=== PATIENT | female | born 1990 ===

== ENCOUNTER 2019-06-10 13:24 | Inpatient (IN) | payer MEDICAID, SELFPAY ==
[~2019-06-10 13:24] MED LIST: Bupivacaine 0.25% HCL 30 ML VIAL ONE
[2019-06-10 13:36] VITALS: BMI 30.4
[2019-06-10] MEDS ORDERED: Lidocaine 1% (PF) 30 ML VIAL ONE (13:47)
[2019-06-10] MEDS ORDERED: NS / Oxytocin 40 units/1000ml 1,000 ML ONE (13:47)
[2019-06-10] MEDS ORDERED: Carboprost 250 MCG/ML AMP IM PRN (13:51)
[2019-06-10] MEDS ORDERED: Ondansetron PF 4 MG/2 ML Vial IVP PRN ×3 (13:51→17:42)
[2019-06-10] MEDS ORDERED: Misoprostol 200 MCG TAB PR PRN (13:51)
[2019-06-10] MEDS ORDERED: Methylergonovine 0.2 MG/ML VIAL IM PRN (13:51)
[2019-06-10] MEDS ORDERED: Acetaminophen 500 MG TAB PO PRN (13:51)
[2019-06-10] MEDS ORDERED: Ibuprofen 800 MG TAB PO PRN (13:51)
[2019-06-10] MEDS ORDERED: NS / Oxytocin 40 units/1000ml 1,000 ML IV PRN (13:51)
[2019-06-10] MEDS ORDERED: Diphenoxylate HCl/Atropine Tablet PO PRN (13:51)
[2019-06-10] MEDS ORDERED: hydrALAZINE 20 MG/ML VIAL SLOW IVP PRN ×2 (13:51→17:42)
[2019-06-10] MEDS ORDERED: Lidocaine 1% (PF) 30 ML VIAL SC PRN (13:51)
[2019-06-10] MEDS ORDERED: Promethazine HCl 25 MG/ML VIAL IM PRN ×2 (13:51→14:40)
[2019-06-10] MEDS ORDERED: Butorphanol Tartrate 1 MG/ML VIAL SLOW IVP PRN (13:51)
[2019-06-10] MEDS ORDERED: Docusate 100 MG CAP PO PRN (13:51)
[2019-06-10] MEDS ORDERED: Fentanyl 4 mcg/Bup 0.1% Cadd 100 ML ONE (14:00)
[2019-06-10 14:08] LABS: Hemoglobin 12.9 g/dL (12.0-16.0); Mean Corpuscular HGB CONC 35.1 g/dL (32.0-36.0); Mean Corpuscular Hemoglobin 30.5 pg (27.0-31.0); Mean Corpuscular Volume 86.9 fL (78.0-98.0); Mean Platelet Volume 7.1 fL (7.4-10.4); Platelet Count 220 thou/uL (130-400); RBC Distribution Width 12.7 % (11.5-14.5); Red Blood Cell (RBC) Count 4.22 mill/uL (4.20-5.40); White Blood Cell (WBC) Count 9.9 thou/uL (4.8-10.8)
--- NOTE | 2019-06-10 14:16 | PDOC.FPROB ---
FMR OB H&P: HPI - History of Present Illness Chief Complaint: contractions Indentification: 29yo @ 38.5 by LMP c/w 9.5wk sono History of Present Illness: 29yo @ 38.5 by LMP c/w 9.5wk sono presents for contractions. Started this AM, increased frequency and intensity. Currently about every 4minutes. Scant vaginal bleeding, no LOF. Good movement. No vision changes, SOB, CP , cough, fever/chills, n/v. Desires epidural. Primary Care Physician: MARRY Jang FMR OB H&P: Current - Care : 3 Para: 1999 Gestational age: 38.5 Due date: 06/19/2019 Dating Criteria: LMP c/w 9.5wk sono - OB Labs Blood type: O RH: positive Antibody Screen: negative HIV: negative RPR: negative HepBsAg: negative Rubella: immune Gonorrhea: negative Chlamydia: negative (initially positive with LORI negative) Pap Smear: NILM A1c: 5.2 GBS: unknown H&H: 12.1 - Anatomy Survey Anatomy survey: grossly normal - Additional Ultrasound Additional: [place] 87.6% on 05/13/19 with posterior placenta. 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 BV treated. Both during this . - Surgical History Sx History: none - Social History Social History: no tob, illicits, etoh - Family History Family History: limb defects FMR OB H&P: Medications - Current Home Medications: Medication Instructions Recorded Confirmed Type Vit No.129/Iron/Folic 1 tab PO DAILY 06/10/19 06/10/19 History [ One Daily Tablet] Allergies/Adverse Reactions: Allergies Allergy/AdvReac Type Severity Reaction Status Date / Time No Known Allergies Allergy Verified 06/10/19 13:27 FMR OB H&P: ROS - Review of Systems General: denies: fever/chills, weight/appetite/sleep changes Eyes: denies: vision changes, scotomas ENT: denies: nasal congestion, rhinorrhea Cardiovascular: denies: chest pain Respiratory: denies: cough, congestion, shortness of breath Gastrointestinal: denies: abdominal pain Genitourinary (Female): reports: vaginal discharge, vaginal bleeding (scant), contractions. denies: hesitancy Musculoskeletal: denies: pain FMR OB H&P: Vital Signs - Maternal Vital signs: Vital Signs - First Documented Temp Pulse Resp BP 97.8 F 71 18 123/70 06/10/19 13:26 06/10/19 13:26 06/10/19 13:26 06/10/19 13:26 - Heart Tones Baseline: 150 Variability: moderate Acceleration: present Deceleration: absent Category: category 1 [place] contractions every: 4-6min FMR OB H&P: Physical Exam - Physical Exam General: NAD, awake, alert and oriented HEENT: MMM Neck: supple Heart: RRR, normal S1/S2, no murmurs/rubs/gallops, no edema General: CTAB, no respiratory distress, good air movement, no rales/rhonchi, no wheezing Abdomen: soft, gravid, non-tender, bowel sound present, no masses Neurological: no focal deficit - Pelvic Exam SVE: Membranes: intact FMR OB H&P: Results - Labs Lab results: Laboratory Results - last 24 hr 06/10/19 13:56 WBC 9.9 RBC 4.22 Hgb 12.9 Hct 36.6 MCV 86.9 MCH 30.5 MCHC 35.1 RDW 12.7 Plt Count 220 MPV 7.1 L FMR OB H&P: A/P - Problem List (1) Term Current Visit: Yes Status: Acute Code(s): Z34.90 - ENCNTR FOR SUPRVSN OF NORMAL , UNSP, UNSP TRIMESTER Disposition: 29yo @ 38.5 by LMP c/w 9.5wk sono presents for contractions #Term SIUP - contractions q4-6min, increased from onset this AM - bulging bag on exam - initial SVE /-1 - Cat 1 strip - desires epidural, anesthesia consulted - Admit to L&D for active labor - monitor on monitors #GBS unknown - sample collected at last OB visit, will obtain results #h/o Chlamydia - Positive early in , LORI negative, no active sxs #CF carrier - FOB CF carrier negative, baby with no increased risk #Glucose intolerance - 1h GCT 163, 3 hr WNL IVF: LR @125cc/hr PCP: MARRY - Dorene/Ramakrishna Diet: NPO Discussion: Date/Time: 06/10/19 1409 This H&P was discussed with Dr. Khan and Dr. Mix who agree with the above documentation and plan. Addendum - Attending - Attending Attestation Date/Time: 06/10/19 1513 I personally evaluated the patient and discussed the management with Dr. Alonzo I agree with the History, Examination, Assessment and Plan documented above with any addition or exceptions noted below. GBS negative. expectant management.
[2019-06-10] MEDS ORDERED: Naloxone HCl 0.4 mg/ml Vial IVP PRN ×2 (14:40)
[2019-06-10] MEDS ORDERED: diphenhydrAMINE 50 MG/ML VIAL IVP PRN (14:40)
[2019-06-10] MEDS ORDERED: Lactated Ringer's 500 ML IV PRN (14:40)
[2019-06-10] MEDS ORDERED: Acetaminophen 325 MG TAB PO PRN (14:40)
[2019-06-10] MEDS ORDERED: EPHEDRINE 25 MG/5 ML SYRINGE SLOW IVP PRN (14:40)
[2019-06-10] MEDS ORDERED: Fentanyl 4 mcg/Bupivacaine 0.1% Cassette 100 ML EPIDURAL SCH (14:45)
[2019-06-10] MEDS ORDERED: Communication Order-Pharmacy FS SCH (14:45)
[2019-06-10 14:46] LABS: HBSAg Index 0.21 S/CO (0-0.99); Hep B Surf Ag Non-Reactive S/CO (NonReactive); Syphilis Antibody Nonreactive (Nonreactive); Syphilis Antibody Index 0.03 S/CO (<1.00 Non-Reactive)
[2019-06-10] MEDS ORDERED: NS w/ Oxytocin 10 units 500 ML ONE (15:44)
--- NOTE | 2019-06-10 16:19 | PDOC.OPDEL ---
OB Operative/Delivery Note Delivery Dr/Surgeon: Louise Sams/Ramakrishna Pre-Delivery Diagnosis: active labor Procedure/Post Delivery Dx: spontaneous vaginal delivery Weeks gestation: 38 (38.5) Anesthesia: epidural - Findings A Sex: male - 1 min: 8 - 5 min: 9 - Additional Findings/Plan Placenta delivered: spontaneous Repaired Obstetrical Laceration: 2nd degree Estimated blood loss: 200cc Compilations/Other Findings: Delivery Physician: Louise Sams Attending: Ramakrishna Procedure: 1. 2. 2nd degree lac repair Anesthesia: Epidural QBL: 200cc Pre-op Diagnosis: 1. Term IUP in active labor 2. H/o Chlamydia during , LORI negative 3. Glucose intolerance Post-op Diagnosis: 1. Term IUP, delivered 2. Same as above Indications: A 29yo @ 38.5 by LMP c/w 9.5wk sono who delivered a viable M infant @ 1551 on 06/10/19. Patient presented to L&D in active labor and following an uneventful antepartum course with epidural placement and AROM, a vigorous male was delivered over an intact perineum in the OA position. Anterior shoulder and then remainder of the body delivered. Nuchal code x1 reduced at the perineum. The head was held down and mouth and nares were bulb suctioned. Cord clamped after delayed cord clamping and cut and cord blood collected. Placenta delivered intact in the Valentine presentation with a 3v cord. Fundal massage was performed and the fundus was firm. The cervix and vagina were inspected for lacerations and a small 2nd degree laceration was noted. Laceration was then repaired with a 3-0 chromic in the usual fashion with good approximation and hemostasis. was then placed on mother for [id number] time and then taken to the nursery in good condition for routine care. Apgars were 8/9 at 1&5 minutes respectively. Patient tolerated delivery well and went to after routine recovery/care. Post delivery plan: routine recovery Addendum - Attending - Attending Attestation Date/Time: 06/11/19 1117 I was present for the entire delivery and repair.
[2019-06-10] MEDS ORDERED: NS / Oxytocin 40 units/1000ml 1,000 ML IV SCH (17:42)
[2019-06-10] MEDS ORDERED: Milk Of Magnesia 30 ML UDCUP PO PRN (17:42)
[2019-06-10] MEDS ORDERED: Adacel (T-DAP) 0.5 ML SYRINGE IM ONE (17:42)
[2019-06-10] MEDS ORDERED: Benzocaine-Menthol 82.5 ML CAN TOP PRN (17:42)
[2019-06-10] MEDS ORDERED: Bisacodyl 10 MG SUPP PR PRN (17:42)
[2019-06-10] MEDS ORDERED: Preparation H Ointment 28 GM TUBE PR PRN (17:42)
[2019-06-10] MEDS ORDERED: Lanolin Ointment 7 GM TUBE TOP PRN (17:42)
[2019-06-10] MEDS: Ferrous Sulfate 325 MG TAB PO SCH (20:05)
[2019-06-10] MEDS: Ibuprofen 800 MG TAB PO SCH (21:06)
[2019-06-10] MEDS: Docusate Calcium (SURFAK) 240 MG CAP PO SCH (21:06)
[2019-06-11] MEDS: Ibuprofen 800 MG TAB PO SCH ×2 (05:03→13:54)
--- NOTE | 2019-06-11 07:33 | PDOC.OBPPN ---
FMR OB PN: Subj - Interval History Day: 1 Doing well, no concerns or complaints. Ambulating well. Tolerating PO well. Pain well-controlled. Lochia similar to normal period. Mild HARDY. No vision changes, CP, SOB, n/v, dizziness/lightheadedness. Voiding without difficulty, passing flatus, no BM. Requesting possible discharge today pending clinical course. FMR OB PN: Obj - Maternal Vital signs: Selected Entries 06/10/19 06/11/19 21:00 03:57 Temperature 98.4 F Pulse Rate 87 Blood Pressure 103/59 L [Semi-Fowlers] Respiratory 18 Rate O2 Sat by Pulse 99 Oximetry Oxygen Delivery Room Air Method - Urine output I&O: 06/10/19 06/11/19 06/12/19 06:59 06:59 06:59 Output Total 465 Balance -465 - Pain Management Intervention: oral medication FMR OB PN: Exam - Physical Exam General: NAD, awake, alert and oriented HEENT: MMM Heart: RRR, normal S1/S2, no murmurs/rubs/gallops, pulses present, no edema General: CTAB, no respiratory distress, good air movement, no rales/rhonchi, no wheezing Abdomen: soft, bowel sound present, other (utuerus firm at located at umbilicus) : appropriately tender - Pelvic Exam : normal lochia FMR OB PN: Data - Labs Lab results: Laboratory Results - last 24 hr 06/10/19 06/10/19 06/10/19 13:56 13:56 13:56 WBC RBC Hgb Hct MCV MCH MCHC RDW Plt Count MPV Syphilis IgG/IgM Ab Nonreactive Hep Bs Antigen Non-Reactive Blood Type O POSITIVE Antibody Screen NEGATIVE 06/10/19 06/10/19 13:56 14:47 WBC 9.9 RBC 4.22 Hgb 12.9 Hct 36.6 MCV 86.9 MCH 30.5 MCHC 35.1 RDW 12.7 Plt Count 220 MPV 7.1 L Syphilis IgG/IgM Ab Hep Bs Antigen Blood Type O POSITIVE Antibody Screen FMR OB PN: A/P - Problem List (1) Term Current Visit: Yes Status: Acute Code(s): Z34.90 - ENCNTR FOR SUPRVSN OF NORMAL , UNSP, UNSP TRIMESTER Disposition: 29yo @ 38.5 by LMP c/w 9.5wk sonart presented in active labor, s/p , now PPD#1 #Term SIUP, PPD#1 s/p - of ROJELIO Shields @ 1551 on 06/10. Apgars 8/9. QBL 200 - GBS negative - pain well-controlled with PO meds - Flatus, voiding, tolerating PO - encourage ambulation and - routine PP care - anticipate discharge today vs tomorrow pending mom/baby clinical course. #h/o Chlamydia - Positive early in , LORI negative, no active sxs #CF carrier - FOB CF carrier negative, baby with no increased risk #Glucose intolerance - 1h GCT 163, 3 hr WNL IVF: SL PCP: MARRY - Elizabeth Diet: Regular Dispo: S/p , PPD #1, anticipate discharge today vs tomorrow. Discussion: Date/Time: 06/11/19 4294 This H&P was discussed with Dr. Mix who agree with the above documentation and plan. Addendum - Attending - Attending Attestation Date/Time: 06/11/19 9125 I personally evaluated the patient and discussed the management with Dr. Alonzo I agree with the History, Examination, Assessment and Plan documented above with any addition or exceptions noted below. Doing well. D/c tomorrow.
[2019-06-11] MEDS: Docusate Calcium (SURFAK) 240 MG CAP PO SCH (08:28)
[2019-06-11] MEDS ORDERED: Prenatal Vitamin 1 TAB PO SCH (09:00)
[2019-06-11] MEDS ORDERED: Lidocaine 1% PF 5 ML VIAL ONE (10:22)
[2019-06-11] MEDS: Ferrous Sulfate 325 MG TAB PO SCH ×2 (10:37→18:24)
[2019-06-11 17:34] VITALS: BP 105/61; TEMP 97.7
== END 2019-06-11 18:40 | disposition home or self-care (01) | DRG 807 ==
LOC: L&D/OP 13:24 → L&D 14:02 → 3SW 18:55
PROVIDERS: ADMIT Family Medicine; ATTEND Family Medicine
PROC: 10E0XZZ Delivery of Products of Conception, External Approach (ICD-10-PCS; principal; 2019-06-10)
PROC: 0KQM0ZZ Repair Perineum Muscle, Open Approach (ICD-10-PCS; 2019-06-10)
PROC: 10907ZC Drainage of Amniotic Fluid, Therapeutic from Products of Conception, Via Natural or Artificial Opening (ICD-10-PCS; 2019-06-10)
DX: O99.284 Endocrine, nutritional and metabolic diseases complicating childbirth (principal); Z37.0 Single live birth; E74.39 Other disorders of intestinal carbohydrate absorption; Z3A.38 38 weeks gestation of pregnancy; O70.1 Second degree perineal laceration during delivery; O69.81X0 Labor and delivery complicated by cord around neck, without compression, not applicable or unspecified
CPT/HCPCS: 36415; 51702; 62272; 85027; 86780; 86850; 86900; 86901; 87340; 99285; J2001; J2590; S0020